=== PATIENT | male | born 1940 | race Caucasian/White ===

== ENCOUNTER 2020-06-26 14:02 | Emergency (ER) | payer MEDICARE ==
[~2020-06-26] VITALS: Ht 170.2 cm; Wt 108.0 kg
[~2020-06-26 14:02] MED LIST: LISINOPRIL10 MG PO; NIASPAN500 MG PO; PERCOCET 5/321 COMBO PO; PRILOSEC40 MG PO; SIMVASTATIN40 MG PO
[2020-06-26 14:52] LABS: HEMATOCRIT 41.8 % (39.0-50.0); HEMOGLOBIN 14.9 g/dl (14.0-18.0); IMMATURE GRANULOCYTES 0.4 % (0.0-5.0); MEAN CELL VOLUME 89.3 fL CALC (80.0-100.0); MEAN CORPUSCULAR HGB 31.8 pG CALC (26.0-32.0); MEAN CORPUSCULAR HGB CONC 35.6 g/dL CAL (32.0-36.0); NEUT# 3.38 thou/uL (1.82-7.42); RED BLOOD COUNT 4.68 mill/uL (4.70-6.10)
[2020-06-26 15:04] LABS: ALBUMIN 4.4 g/dL (3.2-5.0); ALKALINE PHOSPHATASE 130 u/l (38-126); ANION GAP 17 (6-22 (CALC)); BILIRUBIN, TOTAL 0.6 mg/dL (0.0-1.4); BUN 20 mg/dL (8-23); BUN/CREATININE RATIO 25 (12-20 (CALC)); CARBON DIOXIDE 23 mmol/l (22-30); CHLORIDE 103 mmol/l (95-108); CREATININE 0.8 mg/dL (0.7-1.3); GFR > 60 ML/MIN (>=60 (CALC)); GFR FOR AFR.AMER. > 60 ML/MIN (>=60 (CALC)); POTASSIUM 4.6 mmol/l (3.5-5.1); SGOT/AST 44 u/l (19-48); SODIUM 139 mmol/l (137-146); TOTAL PROTEIN 8.1 g/dL (6.3-8.2)
[2020-06-26 18:10] VITALS: BP 140/95
== END 2020-06-27 11:22 | disposition short-term general hospital (02) ==
LOC: ED 14:02
PROVIDERS: Family Medicine
DX: I20.0 Unstable angina (principal); E66.3 Overweight; Z85.46 Personal history of malignant neoplasm of prostate
CPT/HCPCS: J1644

== ENCOUNTER 2020-09-17 | Emergency (ER) | payer MEDICARE ==
[2020-09-17] MEDS ORDERED: LISINOPRIL10 MG PO (12:29)
[2020-09-17] MEDS ORDERED: BRILINTA90 MG PO (12:30)
[2020-09-17] MEDS ORDERED: LIPITOR80 M1 PO (12:30)
[2020-09-17 14:03] LABS: HEMATOCRIT 37.2 % (39.0-50.0); IMMATURE GRANULOCYTES 0.5 % (0.0-5.0); MEAN CELL VOLUME 88.6 fL CALC (80.0-100.0); MEAN CORPUSCULAR HGB 29.8 pG CALC (26.0-32.0); MEAN CORPUSCULAR HGB CONC 33.6 g/dL CAL (32.0-36.0); RED BLOOD COUNT 4.2 mill/uL (4.70-6.10); RED CELL DISTRI WIDTH 12.9 % (11.5-15.5)
[2020-09-17 14:24] LABS: HEMOGLOBIN 12.5 g/dl (14.0-18.0)
[2020-09-17 14:29] LABS: ALKALINE PHOSPHATASE 93 u/l (38-126); ANION GAP 13 (6-22 (CALC)); BUN 18 mg/dL (8-23); BUN/CREATININE RATIO 19 (12-20 (CALC)); CARBON DIOXIDE 25 mmol/l (22-30); CHLORIDE 101 mmol/l (95-108); CREATININE 0.9 mg/dL (0.7-1.3); GFR > 60 ML/MIN (>=60 (CALC)); GFR FOR AFR.AMER. > 60 ML/MIN (>=60 (CALC)); POTASSIUM 3.9 mmol/l (3.5-5.1); SGOT/AST 77 u/l (19-48); SODIUM 136 mmol/l (137-146); TOTAL PROTEIN 7.9 g/dL (6.3-8.2)
[2020-09-17 14:30] LABS: BILIRUBIN, TOTAL 0.9 mg/dL (0.0-1.4)
[2020-09-17] MEDS ORDERED: MEDDOSEPAK PO (15:25)
[2020-09-17] MEDS ORDERED: AZITHROMYCIN500 MG PO (15:25)
[2020-09-17] MEDS ORDERED: VENTOLIN HFA IN (15:25)
== END 2020-09-17 15:40 | disposition home or self-care (01) ==
DX: U07.1 COVID-19 (principal); Z95.5 Presence of coronary angioplasty implant and graft; Z85.46 Personal history of malignant neoplasm of prostate

== ENCOUNTER 2020-09-23 09:57 | Emergency (ER) | payer MEDICARE ==
[~2020-09-23 09:57] MED LIST changes: +AZITHROMYCIN500 MG PO; +BRILINTA90 MG PO; +LIPITOR80 M1 PO; +MEDDOSEPAK PO; +VENTOLIN HFA IN
[2020-09-23 11:20] LABS: HEMATOCRIT 41.1 % (39.0-50.0); HEMOGLOBIN 13.8 g/dl (14.0-18.0); MEAN CELL VOLUME 89.2 fL CALC (80.0-100.0); MEAN CORPUSCULAR HGB 29.9 pG CALC (26.0-32.0); MEAN CORPUSCULAR HGB CONC 33.6 g/dL CAL (32.0-36.0); NEUT# 7.65 thou/uL (1.82-7.42); RED BLOOD COUNT 4.61 mill/uL (4.70-6.10); RED CELL DISTRI WIDTH 13.1 % (11.5-15.5)
[2020-09-23 11:38] LABS: ALKALINE PHOSPHATASE 90 u/l (38-126); ANION GAP 15 (6-22 (CALC)); BILIRUBIN, TOTAL 0.7 mg/dL (0.0-1.4); BUN 26 mg/dL (8-23); BUN/CREATININE RATIO 34 (12-20 (CALC)); CARBON DIOXIDE 23 mmol/l (22-30); CHLORIDE 102 mmol/l (95-108); CREATININE 0.8 mg/dL (0.7-1.3); GFR > 60 ML/MIN (>=60 (CALC)); GFR FOR AFR.AMER. > 60 ML/MIN (>=60 (CALC)); POTASSIUM 4.6 mmol/l (3.5-5.1); SGOT/AST 33 u/l (19-48); SODIUM 136 mmol/l (137-146); TOTAL PROTEIN 7.6 g/dL (6.3-8.2)
[2020-09-23 11:42] LABS: IMMATURE GRANULOCYTES 6.4 % (0.0-5.0)
[2020-09-23 14:14] VITALS: BP 133/71
[2020-09-23] MEDS ORDERED: AZITHROMYCIN500 M1 PO (14:30)
== END 2020-09-23 14:15 | disposition home or self-care (01) ==
LOC: ED 09:57
PROVIDERS: Emergency Medicine
DX: U07.1 COVID-19 (principal); Z85.46 Personal history of malignant neoplasm of prostate; Z95.5 Presence of coronary angioplasty implant and graft; Z79.02 Long term (current) use of antithrombotics/antiplatelets; R06.02 Shortness of breath; Z23 Encounter for immunization
CPT/HCPCS: Q9967